=== PATIENT | male | born 1975 | race Caucasian/White ===

== ENCOUNTER 2018-08-23 10:32 | Emergency (ER) | payer OTHER ==
[2018-08-23 10:54] VITALS: RESP 18; TEMP 99.9
[2018-08-23 11:47] LABS: Appearance,Urine Cloudy (Clear); Bacteria,Urine Moderate /hpf; Bilirubin,Urine Negative (Negative); Blood,Urine Moderate (Negative); Color,Urine Yellow; Glucose,Urine (UA) Negative (Negative); Ketones,Urine Negative (Negative); Leukocyte Esterase,Urine Large (Negative); Mucus,Urine Rare /hpf; Nitrite,Urine Positive (Negative); PH, Urine 5.5 (5.0-8.0); Protein,Urine Trace (Negative); RBC,Urine 91 /hpf (0-5); Specific Gravity,Urine 1.018 (1.001-1.035); Squamous Epithelial Cell,Urine 1 /hpf (0-4); Urobilinogen,Urine <2.0 mg/dL (<2.0)
[2018-08-23] MEDS ORDERED: ACETAMINOPHEN TAB 500 MG TAB PO STA (11:56)
[2018-08-23] MEDS ORDERED: CIPROFLOXACIN HCL 500 MG TAB PO STA (13:16)
--- NOTE | 2018-08-23 13:16 | ED ---
Male Urogenital HPI - General Chief complaint: Back Pain/Injury Stated complaint: Poss kidney stone Time Seen by Provider: 08/23/18 11:26 Source: patient, RN notes reviewed, old records reviewed Mode of arrival: ambulatory Limitations: no limitations - History of Present Illness Initial comments: This is a 43-year-old male to the ER for evaluation. This patient presents today for evaluation regards to back pain. Patient has back pain and dysuria blood in his urine and burning with urination. Patient states he has no medical history, no prior history of STD STI. No fevers. Patient does admit to little pain in his lower back area. No history of kidney stones. Patient was recently a long fishing trip, he has the symptoms 3 days with no improvement. Patient's taken Motrin with no help for pain. No other complaints MD Complaint: dysuria -: days(s) (5) Location: penis Radiation: none Severity: mild Severity scale (1-10): 3 Quality: aching Consistency: constant Improves with: none Worsens with: urination Reports: blood in urine, dysuria - Related Data Home Medications Medication Instructions Recorded Confirmed Fenofibrate Nanocrystallized 48 mg PO DAILY 08/23/18 08/23/18 [Tricor] Ibuprofen [Motrin Ib] 800 mg PO Q6H PRN 08/23/18 08/23/18 Allergies Allergy/AdvReac Type Severity Reaction Status Date / Time No Known Allergies Allergy Verified 08/23/18 12:52 Review of Systems ROS Statement: Those systems with pertinent positive or pertinent negative responses have been documented in the HPI. ROS Other: All systems not noted in ROS Statement are negative. Past Medical History Past Medical History: No Reported History History of Any Multi-Drug Resistant Organisms: None Reported Past Surgical History: No Surgical Hx Reported Past Psychological History: No Psychological Hx Reported Smoking Status: Current every day smoker Past Alcohol Use History: Rare Past Drug Use History: Marijuana General Exam Limitations: no limitations General appearance: alert, in no apparent distress Head exam: Present: atraumatic, normocephalic, normal inspection Eye exam: Present: normal appearance, PERRL, EOMI. Absent: scleral icterus, conjunctival injection, periorbital swelling ENT exam: Present: normal exam, mucous membranes moist Neck exam: Present: normal inspection. Absent: tenderness, meningismus, lymphadenopathy Respiratory exam: Present: normal lung sounds bilaterally. Absent: respiratory distress, wheezes, rales, rhonchi, stridor Cardiovascular Exam: Present: regular rate, normal rhythm, normal heart sounds. Absent: systolic murmur, diastolic murmur, rubs, gallop, clicks GI/Abdominal exam: Present: soft, normal bowel sounds. Absent: distended, tenderness, guarding, rebound, rigid Extremities exam: Present: normal inspection, full ROM, normal capillary refill. Absent: tenderness, pedal edema, joint swelling, calf tenderness Back exam: Present: normal inspection Neurological exam: Present: alert, oriented X3, CN II-XII intact Psychiatric exam: Present: normal affect, normal mood Skin exam: Present: warm, dry, intact, normal color. Absent: rash Course Vital Signs 08/23/18 10:52 Temperature 99.9 F H Pulse Rate 85 Respiratory 18 Rate Blood Pressure 119/67 O2 Sat by Pulse 98 Oximetry - Reevaluation(s) Reevaluation #1: 08/23/18 13:15 Medical record is reviewed Reevaluation #2: 08/23/18 13:15 Patient is in no acute distress Medical Decision Making - Medical Decision Making 43-year-old male to ER for evaluation. Patient has positive UTI we'll culture for STI, computed tomography scan is negative for kidney stone. Patient can be discharged home - Lab Data Lab Results 08/23/18 Range/Units 11:34 Urine Color Yellow Urine Appearance Cloudy (Clear) Urine pH 5.5 (5.0-8.0) Ur Specific [place] 1.018 (1.001-1.035) Urine Protein Trace H (Negative) Urine Glucose (UA) Negative (Negative) Urine Ketones Negative (Negative) Urine Blood Moderate H (Negative) Urine Nitrite Positive (Negative) Urine Bilirubin Negative (Negative) Urine Urobilinogen <2.0 (<2.0) mg/dL Ur Leukocyte Esterase Large H (Negative) Urine RBC 91 H (0-5) /hpf Urine WBC 121 H (0-5) /hpf Urine WBC Clumps Occasional H (None) /hpf Ur Squamous Epith Cells 1 (0-4) /hpf Urine Bacteria Moderate H (None) /hpf Urine Mucus Rare H (None) /hpf - Radiology Data Radiology results: report reviewed (CT abdomen and pelvis negative for acute disease), image reviewed Disposition Clinical Impression: UTI (urinary tract infection), Urethritis Disposition: HOME SELF-CARE Condition: Good Instructions (If sedation given, give patient instructions): Nonspecific Urethritis in Men (ED) Is patient prescribed a controlled substance at d/c from ED?: No Referrals: Zack Gamboa DO [Primary Care Provider] - 1-2 days
--- NOTE | 2018-08-23 13:33 | CT ---
EXAMINATION TYPE: CT abdomen pelvis wo con DATE OF EXAM: 08/23/2018 COMPARISON: None INDICATION: Rt flank pain, difficult urination DLP: 566 mGycm, Automated exposure control for dose reduction was used. CONTRAST: 0 mL of Isovue 300. Study performed without Oral Contrast TECHNIQUE: Axial images were obtained from above the diaphragm to the pubic rami in the axial plane a t 5 mm thick sections. Reconstructed images are reviewed on the computer in the coronal plane. FINDINGS: Limited CT sections are obtained the lung bases. The lung bases are clear. CT ABDOMEN: Liver: Normal Spleen: Normal Pancreas: Normal Adrenal glands: The adrenal glands are normal. Gallbladder: Normal Kidneys: No masses are evident. Minimal fullness is in the right kidney. No hydronephrosis or hydrour eter is evident. There is some very minimal right periureteral inflammatory change. Recent passage of a renal stone is not excluded. There are no renal stones identified on this examination. No cysts ar e present. No suspicious calcifications within the kidneys or ureters are evident. No urinary bladde r calcifications are evident. Aorta: Vascular calcification is within the aorta. Inferior vena cava: Normal. CT PELVIS: Loops of bowel within the abdomen and pelvis are normal. Studies performed without oral contrast limiting bowel evaluation. Some fecal debris is within the colon. Appendix: Normal as visualized. Urinary bladder: Incompletely distended. No suspicious renal stones are identified. Genitourinary structures: Prostate is unremarkable. Osseous structures: No suspicious lytic or sclerotic lesions. Some facet hypertrophy is present. IMPRESSIONS: 1. There appears to be some minimal fullness of the right renal collecting system. Finding is nonspe cific. No obstructing renal or ureteral stones evident. Recent passage could have this appearance. 2. No acute nonobstructing renal stones are evident within either kidney.
[2018-08-23 14:22] VITALS: BP 102/58; PULSE 76
[2018-08-25 10:36] LABS: C. trachomatis,PCR Negative (Neg,Equiv); Chlamydia trachomatis Source Urine
[2018-08-25 15:48] LABS: N. gonorrhoeae,PCR Negative (Neg,Equiv); Neisseria Source Urine
== END 2018-08-23 14:22 | disposition home or self-care (01) ==
LOC: EC 10:32
DX: N34.2 Other urethritis (principal); N39.0 Urinary tract infection, site not specified; M54.5 Low back pain; F17.200 Nicotine dependence, unspecified, uncomplicated; Z79.899 Other long term (current) drug therapy
CPT/HCPCS: 74176; 81001; 87077; 87086; 87186; 87491; 87591; 99284

== ENCOUNTER 2021-04-04 14:44 | Observation (INO) | payer OTHER ==
--- NOTE | 2021-04-04 15:45 | ED ---
General Adult HPI - General Chief complaint: Chest Pain Stated complaint: Chest Pain,Blurred Vision Time Seen by Provider: 04/04/21 14:53 Source: patient Mode of arrival: ambulatory Limitations: no limitations - History of Present Illness Initial comments: Dictation was produced using [employer] dictation software. please excuse any grammatical, word or spelling errors. Chief Complaint: 45-year-old male with past medical history of hype rtriglyceridemia, tobacco abuse, family history of cardiac disease presents to the emergency department for chest pain. History of Present Illness: 45-year-old maladies been having some substernal and epigastric pain for the last 4-5 days. He called his primary care doctor about it. Primary care doctor ordered a chest x-ray for concerns of pneumonia. Patient has been having some wheezing shortness of breath. X-rays unremarkable. Patient was treated for pneumonia. He went to the urgent care had a covid test that was negative. For the last 3-4 days he's been having substernal chest pain. He did have some associated nausea and diaphoresis during 1 episode. He does have some mild active chest pain currently. Patient has risk factors. His family history of coronary artery disease. Patient does report having had some symptoms radiate to his right upper extremity. Patient states he has had some episodes where he'll become tachycardic into the 150s while at rest. He knows this because he put on a pulse oximeter at home that showed that he was hypoxic and tachycardic. The ROS documented in this emergency department record has been reviewed and confirmed by me. Those systems with pertinent positive or negative responses have been documented in the HPI. All other systems are other negative and/or noncontributory. PHYSICAL EXAM: General Impression: Alert and oriented x3, not in acute distress HEENT: Normocephalic atraumatic, extra-ocular movements intact, pupils equal and reactive to light bilaterally, mucous membranes moist. Cardiovascular: Heart regular rate and rhythm Chest: Able to complete full sentences, no retractions, no tachypnea Abdomen: abdomen soft, non-tender, non-distended, no organomegaly Musculoskeletal: Pulses present and equal in all extremities, no peripheral edema Motor: no focal deficits noted Neurological: CN II-XII grossly intact, no focal motor or sensory deficits noted Skin: Intact with no visualized rashes Psych: Normal affect and mood ED course: 45-year-old male presents emergency department for chest pain symptoms concerning for acute coronary syndrome. Signs upon arrival are within acceptable limits. EKG on arrival does not suggest any signs of ischemia or infarction. Laboratory evaluation obtained. Mild leukocytosis of 0.5. Rest is likely from recent steroids. Coag panel is negative. D-dimer is negative. Metabolic panel is unremarkable. Troponin is negative. Chest x-ray shows no acute processes. Patient reevaluated bedside at 5:00 PM found to be in stable medical condition. He does not have any active chest symptoms at this time. Patient given aspirin. He'll be admitted under the care of Dr. fenton on behalf of [facility] hospitalist group. Cardiology consulted. EKG interpretation: Ventricular rate 91, normal sinus rhythm, PA interval 140, QRS 106, QTC 440. No PA prolongation, no QTC prolongation, no ST or T-wave changes noted. No old EKG for comparison. Overall, this EKG is unremarkable - Related Data Home Medications Medication Instructions Recorded Confirmed Albuterol Inhaler [Ventolin Hfa 2 puff INHALATION RT-QID PRN 04/04/21 04/04/21 Inhaler] Levofloxacin [Levaquin] 750 mg PO DAILY 04/04/21 04/04/21 predniSONE [Deltasone] See Taper PO DIRECTED 04/04/21 04/04/21 Allergies Allergy/AdvReac Type Severity Reaction Status Date / Time No Known Allergies Allergy Verified 04/04/21 16:27 Review of Systems ROS Statement: Those systems with pertinent positive or pertinent negative responses have been documented in the HPI. ROS Other: All systems not noted in ROS Statement are negative. Past Medical History Past Medical History: No Reported History History of Any Multi-Drug Resistant Organisms: None Reported Past Surgical History: No Surgical Hx Reported Past Psychological History: No Psychological Hx Reported Smoking Status: Current every day smoker Past Alcohol Use History: Rare Past Drug Use History: Marijuana General Exam Limitations: no limitations Course Vital Signs 04/04/21 04/04/21 14:49 16:17 Temperature 98.2 F Pulse Rate 98 84 Respiratory 16 18 Rate Blood Pressure 149/83 128/89 O2 Sat by Pulse 96 98 Oximetry Medical Decision Making - Lab Data Result diagrams: 04/04/21 14:59 04/04/21 14:59 Lab Results 04/04/21 04/04/2121 Range/Units 14:59 14:59 14:59 WBC 12.5 H (3.8-10.6) k/uL RBC 5.64 (4.30-5.90) m/uL Hgb 18.2 H (13.0-17.5) gm/dL Hct 53.4 H (39.0-53.0) % MCV 94.7 (80.0-100.0) fL MCH 32.2 (25.0-35.0) pg MCHC 34.0 (31.0-37.0) g/dL RDW 12.0 (11.5-15.5) % Plt Count 248 (150-450) k/uL MPV 7.5 Neutrophils % 90 % Lymphocytes % 6 % Monocytes % 3 % Eosinophils % 0 % Basophils % 0 % Neutrophils # 11.3 H (1.3-7.7) k/uL Lymphocytes # 0.8 L (1.0-4.8) k/uL Monocytes # 0.3 (0-1.0) k/uL Eosinophils # 0.0 (0-0.7) k/uL Basophils # 0.0 (0-0.2) k/uL PT 10.4 (9.0-12.0) sec INR 1.0 (<1.2) APTT 27.6 (22.0-30.0) sec D-Dimer <0.17 (<0.60) mg/L FEU Sodium 136 L (137-145) mmol/L Potassium 4.6 (3.5-5.1) mmol/L Chloride 102 (98-107) mmol/L Carbon Dioxide 24 (22-30) mmol/L Anion Gap 10 mmol/L BUN 18 (9-20) mg/dL Creatinine 0.80 (0.66-1.25) mg/dL Est GFR (CKD-EPI)AfAm >90 (>60 ml/min/1.73 sqM) Est GFR (CKD-EPI)NonAf >90 (>60 ml/min/1.73 sqM) Glucose 120 H (74-99) mg/dL Calcium 9.7 (8.4-10.2) mg/dL Magnesium 2.3 (1.6-2.3) mg/dL Total Bilirubin 0.5 (0.2-1.3) mg/dL AST 32 (17-59) U/L ALT 30 (4-49) U/L Alkaline Phosphatase 91 (38-126) U/L Troponin I (0.000-0.034) ng/mL NT-Pro-B Natriuret Pep pg/mL Total Protein 7.0 (6.3-8.2) g/dL Albumin 4.2 (3.5-5.0) g/dL Lipase 79 (23-300) U/L 04/04/21 04/04/21 Range/Units 14:59 14:59 WBC (3.8-10.6) k/uL RBC (4.30-5.90) m/uL Hgb (13.0-17.5) gm/dL Hct (39.0-53.0) % MCV (80.0-100.0) fL MCH (25.0-35.0) pg MCHC (31.0-37.0) g/dL RDW (11.5-15.5) % Plt Count (150-450) k/uL MPV Neutrophils % % Lymphocytes % % Monocytes % % Eosinophils % % Basophils % % Neutrophils # (1.3-7.7) k/uL Lymphocytes # (1.0-4.8) k/uL Monocytes # (0-1.0) k/uL Eosinophils # (0-0.7) k/uL Basophils # (0-0.2) k/uL PT (9.0-12.0) sec INR (<1.2) APTT (22.0-30.0) sec D-Dimer (<0.60) mg/L FEU Sodium (137-145) mmol/L Potassium (3.5-5.1) mmol/L Chloride (98-107) mmol/L Carbon Dioxide (22-30) mmol/L Anion Gap mmol/L BUN (9-20) mg/dL Creatinine (0.66-1.25) mg/dL Est GFR (CKD-EPI)AfAm (>60 ml/min/1.73 sqM) Est GFR (CKD-EPI)NonAf (>60 ml/min/1.73 sqM) Glucose (74-99) mg/dL Calcium (8.4-10.2) mg/dL Magnesium (1.6-2.3) mg/dL Total Bilirubin (0.2-1.3) mg/dL AST (17-59) U/L ALT (4-49) U/L Alkaline Phosphatase (38-126) U/L Troponin I <0.012 (0.000-0.034) ng/mL NT-Pro-B Natriuret Pep 53 pg/mL Total Protein (6.3-8.2) g/dL Albumin (3.5-5.0) g/dL Lipase (23-300) U/L Disposition Clinical Impression: Chest pain Disposition: ADMITTED IP TO THIS HOSP Condition: Fair Referrals: Zack Gamboa DO [Primary Care Provider] - 1-2 days
[2021-04-04 15:57] LABS: Basophils % (A) 0 %; Eosinophils % (A) 0 %; HCT 53.4 % (39.0-53.0); HGB 18.2 gm/dL (13.0-17.5); Lymphocytes # (A) 0.8 k/uL (1.0-4.8); Lymphocytes % (A) 6 %; MCH 32.2 pg (25.0-35.0); MCV 94.7 fL (80.0-100.0); Mean Platelet Volume 7.5; Monocytes # (A) 0.3 k/uL (0-1.0); Monocytes % (A) 3 %; Neutrophils # (A) 11.3 k/uL (1.3-7.7); Neutrophils % (A) 90 %; Platelet Count 248 k/uL (150-450); RBC 5.64 m/uL (4.30-5.90); WBC 12.5 k/uL (3.8-10.6)
[2021-04-04 16:06] LABS: ALT 30 U/L (4-49); AST 32 U/L (17-59); African American GFR (CKD) >90 (>60 ml/min/1.73 sqM); Albumin 4.2 g/dL (3.5-5.0); Alkaline Phosphatase 91 U/L (38-126); Anion Gap 10 mmol/L; Blood Urea Nitrogen 18 mg/dL (9-20); Calcium 9.7 mg/dL (8.4-10.2); Carbon Dioxide 24 mmol/L (22-30); Chloride 102 mmol/L (98-107); Glucose 120 mg/dL (74-99); Lipase 79 U/L (23-300); Magnesium 2.3 mg/dL (1.6-2.3); Non-African American GFR(CKD) >90 (>60 ml/min/1.73 sqM); Potassium 4.6 mmol/L (3.5-5.1); Sodium 136 mmol/L (137-145); Total Bilirubin 0.5 mg/dL (0.2-1.3)
--- NOTE | 2021-04-04 16:10 | XR ---
EXAMINATION TYPE: XR chest 1V portable DATE OF EXAM: 04/04/2021 COMPARISON: NONE HISTORY: Chest pain, shortness of breath, and weakness. TECHNIQUE: Single AP portable frontal upright view of the chest is obtained. FINDINGS: There is no suspicious focal air space opacity, pleural effusion, or pneumothorax seen. T he cardiac silhouette size is within normal limits. Overlying EKG leads. The osseous structures are intact. IMPRESSION: No acute process.
[2021-04-04 16:13] LABS: Partial Thromboplastin Time 27.6 sec (22.0-30.0); Prothrombin Time 10.4 sec (9.0-12.0)
[2021-04-04] MEDS ORDERED: ASPIRIN 81 MG PO STA (16:54)
[2021-04-04] MEDS ORDERED: NITROGLYCERIN SL TABS 0.4 MG TAB SUBLINGUAL PRN (16:54)
[2021-04-05] MEDS ORDERED: ALBUTEROL NEBULIZED 7.5 MG, IPRATROPIUM NEBULIZED 0.5 MG, SODIUM CHLORIDE 0.9% NEBULIZ ... INHALATION ONE ×3 (08:06)
[2021-04-05] MEDS ORDERED: ASPIRIN 325 MG TAB PO SCH (09:00)
[2021-04-05] MEDS: FAMOTIDINE 20 MG/2 ML VIAL IV SCH ×2 (09:07→21:12)
[2021-04-05] MEDS: ASPIRIN 81 MG PO SCH (09:07)
[2021-04-05] MEDS: HEPARIN SODIUM,PORCINE/PF 5,000 UNIT/0.5 ML SYRINGE SQ SCH ×2 (09:07→21:13)
[2021-04-05] MEDS: PANTOPRAZOLE 40 MG TABLET PO SCH (09:16)
[2021-04-05 09:52] LABS: Basophils # (A) 0.05 X 10*3/uL (0.00-0.10); Basophils % (A) 0.3 %; Eosinophils # (A) 0.07 X 10*3/uL (0.04-0.35); Eosinophils % (A) 0.4 %; HCT 52.9 % (39.6-50.0); HGB 17.4 g/dL (13.0-17.0); Lymphocytes # (A) 2.33 X 10*3/uL (0.90-5.00); Lymphocytes % (A) 14.8 %; MCH 30.9 pg (27.0-32.0); MCHC 32.9 g/dL (32.0-37.0); Monocytes # (A) 0.91 X 10*3/uL (0.20-1.00); Monocytes % (A) 5.8 %; Neutrophils # (A) 12.29 X 10*3/uL (1.80-7.70); Neutrophils % (A) 78.3 %; Platelet Count 266 X 10*3/uL (140-440); RBC 5.63 X 10*6/uL (4.40-5.60); RDW 12.3 % (11.5-14.5); WBC 15.71 X 10*3/uL (4.50-10.00)
[2021-04-05] MEDS ORDERED: predniSONE 20 MG TAB PO SCH (11:30)
[2021-04-05] MEDS ORDERED: IPRATROPIUM-ALBUTEROL 3 ML NEB INHALATION STA (11:31)
--- NOTE | 2021-04-05 11:32 | P.CRDCN ---
History of Present Illness History of present illness: HISTORY OF PRESENTING ILLNESS This is a pleasant 45-year-old male past medical history significant for dyslipidemia and chronic pink edema dependent. 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 We have been asked to see in consultation for chest pain. He states for the previous one week he has been experiencing symptoms of burning in the midsternal region associated with shortness of breath. He saw his PCP who thought he possibly had pneumonia, however xray imaging was unremarkable. He was treated as such anyways. At times he has been nauseated and diaphoretic. Denies dizziness or palpitations. He states his chest burning is worse when he lays flat as well as his shortness of breath. When he is up moving his symptoms seem to improve. He cannot take a deep breath without coughing. DIAGNOSTICS EKG reveals SR with incomplete right bundle branch block, no acute ST or T-wave abnormalities. Telemetry tracings indicate SR. Chest xray negative for an acute cardiopulmonary process. Laboratory reviewed, WBC 12.5, hgb 18.2, plt 248, d-dimer negative, sodium 136, potassium 4.6, creatinine 0.8, magnesium 2.3, cardiac enzymes negative x3 and BNP 53. He takes no daily cardiac medications. REVIEW OF SYSTEMS At the time of my exam: CONSTITUTIONAL: Denies fever or chills. CARDIOVASCULAR: Denies chest pain, shortness of breath, orthopnea, PND or palpitations. RESPIRATORY: Denies cough. GASTROINTESTINAL: Denies abdominal pain, diarrhea, constipation, nausea or vomiting. MUSCULOSKELETAL: Denies myalgias. NEUROLOGIC: Denies numbness, tingling, headache or weakness. ENDOCRINE: Denies fatigue, weight change, polydipsia or polyurina. GENITOURINARY: Denies burning, hematuria or urgency with micturation. HEMATOLOGIC: Denies history of anemia or bleeding. PHYSICAL EXAMINATION Blood pressure 113/70 heart rate 54 afebrile and maintaining oxygen saturation on room air. CONSTITUTIONAL: No apparent distress. HEENT: Head is normocephalic. Pupils are equal, round. Sclerae anicteric. Mucous membranes of the mouth are moist. No JVD. No carotid bruit. CHEST EXAMINATION: Scattered rhonchi and expiratory wheeze. No chest wall tenderness is noted on palpation or with deep breathing. HEART EXAMINATION: Regular rate and rhythm. S1, S2 heard. No murmurs, gallops or rub. ABDOMEN: Soft, nontender. EXTREMITIES: 2+ peripheral pulses, no lower extremity edema and no calf tenderness. NEUROLOGIC EXAMINATION: Patient is awake, alert and oriented x3. ASSESSMENT Chest pain Shortness of breath Leukocytosis PLAN An acute coronary event has been ruled out. Obtain 2D echocardiogram and doppler study to assess cardiac structure and function. Initiate protonix and give a breathing treatment. Consider pulmonary evaluation. Further recommendations to follow as evaluation by Dr. Chairez. Thank you kindly for this consultation. Nurse Practitioner note has been reviewed, I agree with a documented findings and plan of care. Patient was seen and examined. Past Medical History Past Medical History: No Reported History History of Any Multi-Drug Resistant Organisms: None Reported Past Surgical History: No Surgical Hx Reported Past Anesthesia/Blood Transfusion Reactions: No Reported Reaction Past Psychological History: No Psychological Hx Reported Smoking Status: Current every day smoker Past Alcohol Use History: Rare Past Drug Use History: Marijuana Medications and Allergies Home Medications Medication Instructions Recorded Confirmed Type Albuterol Inhaler [Ventolin Hfa 2 puff INHALATION RT-QID PRN 04/04/21 04/04/21 History Inhaler] Levofloxacin [Levaquin] 750 mg PO DAILY 04/04/21 04/04/21 History predniSONE [Deltasone] See Taper PO DIRECTED 04/04/21 04/04/21 History Allergies Allergy/AdvReac Type Severity Reaction Status Date / Time No Known Allergies Allergy Verified 04/04/21 16:27 Physical Exam Vitals: Vital Signs Temp Pulse Pulse Resp BP BP Pulse Ox 04/05/21 07:00 97.9 F 54 L 18 113/70 97 04/05/21 02:00 97.6 F 58 L 18 115/63 95 04/04/21 20:00 98 F 76 18 122/71 95 04/04/21 19:15 98.2 F 90 18 118/75 98 04/04/21 19:02 88 04/04/21 17:05 79 18 133/81 99 04/04/21 16:17 84 18 128/89 98 04/04/21 14:49 98.2 F 98 16 149/83 96 Intake and Output 04/04/21 04/05/21 04/05/21 22:59 06:59 14:59 Other: # Voids 1 3 Weight 94.347 kg Results 04/05/21 04:34 04/04/21 14:59 Cardiac Enzymes 04/04/21 04/04/21 04/04/21 Range/Units 14:59 14:59 17:43 AST 32 (17-59) U/L Troponin I <0.012 <0.012 (0.000-0.034) ng/mL 04/04/21 Range/Units 20:26 AST (17-59) U/L Troponin I <0.012 (0.000-0.034) ng/mL Coagulation 04/04/21 Range/Units 14:59 PT 10.4 (9.0-12.0) sec APTT 27.6 (22.0-30.0) sec CBC 04/04/21 Range/Units 14:59 WBC 12.5 H (3.8-10.6) k/uL RBC 5.64 (4.30-5.90) m/uL Hgb 18.2 H (13.0-17.5) gm/dL Hct 53.4 H (39.0-53.0) % Plt Count 248 (150-450) k/uL Comprehensive Metabolic Panel 04/04/21 Range/Units 14:59 Sodium 136 L (137-145) mmol/L Potassium 4.6 (3.5-5.1) mmol/L Chloride 102 (98-107) mmol/L Carbon Dioxide 24 (22-30) mmol/L BUN 18 (9-20) mg/dL Creatinine 0.80 (0.66-1.25) mg/dL Glucose 120 H (74-99) mg/dL Calcium 9.7 (8.4-10.2) mg/dL AST 32 (17-59) U/L ALT 30 (4-49) U/L Alkaline Phosphatase 91 (38-126) U/L Total Protein 7.0 (6.3-8.2) g/dL Albumin 4.2 (3.5-5.0) g/dL Current Medications Generic Name Dose Route Start Last Admin Trade Name Freq PRN Reason Stop Dose Admin Aspirin 81 mg 04/05/21 09:00 04/05/21 09:07 Aspirin 81 Mg PO 81 mg DAILY DARON Administration Famotidine 20 mg 04/05/21 09:00 04/05/21 09:07 Famotidine 20 Mg/2 Ml Vial IV 20 mg Q12HR DARON Administration Heparin Sodium (Porcine) 5,000 unit 04/05/21 09:00 04/05/21 09:07 Heparin Sodium,Porcine/Pf 5,000 Unit/0.5 Ml Syringe SQ 5,000 unit Q12HR DARON Administration Nitroglycerin 0.4 mg 04/04/21 16:54 Nitroglycerin Sl Tabs 0.4 Mg Tab SUBLINGUAL Q5M PRN Chest Pain Pantoprazole Sodium 40 mg 04/05/21 08:15 04/05/21 09:16 Pantoprazole 40 Mg Tablet PO 40 mg [id number] DARON Administration Intake and Output 04/04/21 04/05/21 04/05/21 22:59 06:59 14:59 Other: # Voids 1 3 Weight 94.347 kg 04/04/21 14:59 04/04/21 14:59
[2021-04-05] MEDS ORDERED: IPRATROPIUM-ALBUTEROL 3 ML NEB INHALATION PRN (11:34)
[2021-04-05] MEDS ORDERED: methylPREDNISolone SOD SUCCI 125 MG/2 ML VIAL IV STA (11:35)
--- NOTE | 2021-04-05 11:36 | P.HPIM ---
History of Present Illness This is a pleasant 45 years old male with no significant past medical history. Patient presents because of chest pain. He is a patient of Dr. Zack Pierce who was recently prescribed him ready zone Taper and Levaquin 750 mg daily for suspected pneumonia as per patient. 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 He was taking his antibiotic and oral steroids for the last 4 days. This time she presents because of common cold-like symptoms associated with fullness in his belly with no abdominal pain or nausea vomiting, no sneezing or sore throat but he felt something sitting in his chest 8/10 in severity now down to 4-5/10 in severity, pain is central, nonradiating. He denies any urinary symptoms He smokes about 1 pack per day, patient is counseled to quit, he does not want nicotine patch. He drinks occasionally and uses marijuana daily. Vitals are stable, he is mildly bradycardic Labs showing mild leukocytosis of 12.5 but he might be on steroids. repeat WBC is 15.7. Hemoglobin is 18.2. INR is normal 1.0. D-dimer is negative less than 0.17. Sodium 136. BMP and liver enzymes are unremarkable. Coronal brow was not detected. Troponin are negative 3 less than 0.012. Chest x-ray: No acute process. EKG: Normal sinus rhythm at 91 with incomplete right bundle branch block and no significant ST-T changes. QTC 440 In the emergency room he received aspirin Review of Systems CONSTITUTIONAL: No fever, no malaise, no fatigue. HEENT: No recent visual problems or hearing problems. Denied any sore throat. CARDIOVASCULAR: No orthopnea, PND, no palpitations, no syncope. PULMONARY: No shortness of breath, no cough, no hemoptysis. GASTROINTESTINAL: No diarrhea, no nausea, no vomiting, no abdominal pain. Normoactive bowel sounds. NEUROLOGICAL: No headaches, no weakness, no numbness. HEMATOLOGICAL: Denies any bleeding or petechiae. GENITOURINARY: Denies any burning micturition, frequency, or urgency. MUSCULOSKELETAL/RHEUMATOLOGICAL: Denies any joint pain, swelling, or any muscle pain. ENDOCRINE: Denies any polyuria or polydipsia. Past Medical History Past Medical History: No Reported History History of Any Multi-Drug Resistant Organisms: None Reported Past Surgical History: No Surgical Hx Reported Past Anesthesia/Blood Transfusion Reactions: No Reported Reaction Past Psychological History: No Psychological Hx Reported Smoking Status: Current every day smoker Past Alcohol Use History: Rare Past Drug Use History: Marijuana Medications and Allergies Home Medications Medication Instructions Recorded Confirmed Type Albuterol Inhaler [Ventolin Hfa 2 puff INHALATION RT-QID PRN 04/04/21 04/04/21 History Inhaler] Levofloxacin [Levaquin] 750 mg PO DAILY 04/04/21 04/04/21 History predniSONE [Deltasone] See Taper PO DIRECTED 04/04/21 04/04/21 History Allergies Allergy/AdvReac Type Severity Reaction Status Date / Time No Known Allergies Allergy Verified 04/04/21 16:27 Physical Exam Vitals: Vital Signs Temp Pulse Pulse Resp BP BP Pulse Ox 04/05/21 07:00 97.9 F 54 L 18 113/70 97 04/05/21 02:00 97.6 F 58 L 18 115/63 95 04/04/21 20:00 98 F 76 18 122/71 95 04/04/21 19:15 98.2 F 90 18 118/75 98 04/04/21 19:02 88 04/04/21 17:05 79 18 133/81 99 04/04/21 16:17 84 18 128/89 98 04/04/21 14:49 98.2 F 98 16 149/83 96 Intake and Output 04/04/21 04/05/21 04/05/21 22:59 06:59 14:59 Other: # Voids 1 3 Weight 94.347 kg GENERAL: The patient is alert and oriented x3, not in any acute distress. Well developed, well nourished. HEENT: Pupils are round and equally reacting to light. EOMI. No scleral icterus. No conjunctival pallor. Normocephalic, atraumatic. No pharyngeal erythema. No thyromegaly. CARDIOVASCULAR: S1 and S2 present. No murmurs, rubs, or gallops. PULMONARY: Chest is clear to auscultation, Scatteredwheezing . no crackles. ABDOMEN: Soft, nontender, nondistended, normoactive bowel sounds. No palpable organomegaly. MUSCULOSKELETAL: No joint swelling or deformity. EXTREMITIES: No cyanosis, clubbing, or pedal edema. NEUROLOGICAL: Gross neurological examination did not reveal any focal deficits. SKIN: No rashes. No petechiae Results CBC & Chem 7: 04/05/21 04:34 04/04/21 14:59 Labs: Abnormal Lab Results - Last 24 Hours (Table) 04/04/21 04/04/21 Range/Units 14:59 14:59 WBC 12.5 H (3.8-10.6) k/uL Hgb 18.2 H (13.0-17.5) gm/dL Hct 53.4 H (39.0-53.0) % Neutrophils # 11.3 H (1.3-7.7) k/uL Lymphocytes # 0.8 L (1.0-4.8) k/uL Sodium 136 L (137-145) mmol/L Glucose 120 H (74-99) mg/dL Thrombosis Risk Factor Assmnt - Choose All That Apply Any of the Below Risk Factors Present?: Yes Each Factor Represents 1 point: Age 41-60 years Other Risk Factors: No Other congenital or acquired thrombophilia - If yes, enter type in comment: No Thrombosis Risk Factor Assessment Total Risk Factor Score: 1 Thrombosis Risk Factor Assessment Level: Low Risk Assessment and Plan Assessment: Chest pain, rule out cardiac causes. D-dimer negative less than 0.17 Incomplete right bundle branch block with mild bradycardia Mild leukocytosis, mostly secondary to steroid effect mild COPD exacerbation, on steroids Nicotine dependence Brief treatment with mild depression secondary to loss of life few months ago Plan: This is a pleasant 45 years old male who presents because of chest pain Continue with aspirin. Cardiology consult Continue with prednisone. Add Symbicort and breathing treatment Labs and medication were reviewed.. Continue same treatment. Continue with symptomatic treatment. Resume home medication. Monitor lytes and vitals. DVT and GI prophylaxis. Further recommendations depends on the clinical course of the patient DVT prophylaxis: Subcutaneous heparin GI Prophylaxis: Ppi Prognosis is guarded
--- NOTE | 2021-04-05 12:45 | ECHOF ---
Referral Reason:cp, sob MEASUREMENTS -------- HEIGHT: 182.9 cm WEIGHT: 94.3 kg BP: 113/70 RVIDd: 3.4 cm (< 3.3) IVSd: 1.4 cm (0.6 - 1.1) LVIDd: 5.0 cm (3.9 - 5.3) LVPWd: 1.3 cm (0.6 - 1.1) IVSs: 1.5 cm LVIDs: 3.2 cm LVPWs: 1.5 cm LAESV Index (A-L): 21.64 ml/m Ao Diam: 3.6 cm (2.0 - 3.7) AV Cusp: 2.2 cm (1.5 - 2.6) LA Diam: 3.3 cm (2.7 - 3.8) MV EXCURSION: 19.730 mm (> 18.000) MV EF SLOPE: 90 mm/s (70 - 150) EPSS: 0.6 cm MV E Donnell: 0.86 m/s MV DecT: 150 ms MV A Donnell: 0.69 m/s MV E/A Ratio: 1.24 RAP: 5.00 mmHg RVSP: 22.55 mmHg FINDINGS -------- Sinus rhythm. This was a technically adequate study. The left ventricular size is normal. There is mild concentric left ventricular hypertrophy. Overa ll left ventricular systolic function is normal with, an EF between 55 - 60 %. The diastolic fillin g pattern is normal for the age of the patient 9.98. The right ventricle is mildly enlarged. Normal LA size by volume 22+/-6 ml/m2. The right atrial size is normal. Interatrial and interventricular septum intact. There is no evidence of aortic regurgitation. There is no evidence of aortic stenosis. No mitral regurgitation. Mild tricuspid regurgitation present. There is no evidence of pulmonary hypertension. The right v entricular systolic pressure, as measured by Doppler, is 22.55mmHg. There is no pulmonic regurgitation present. The aortic root size is normal. Normal inferior vena cava with normal inspiratory collapse consistent with estimated right atrial pre ssure of 5 mmHg. There is no pericardial effusion. CONCLUSIONS -------- 1. The left ventricular size is normal. 2. There is mild concentric left ventricular hypertrophy. 3. Overall left ventricular systolic function is normal with, an EF between 55 - 60 %. 4. The diastolic filling pattern is normal for the age of the patient 9.98 5. The right ventricle is mildly enlarged. 6. Mild tricuspid regurgitation present. [employer] SERVICE [employer]EL [employer]NER: Deborah Valdivia RDCS
--- NOTE | 2021-04-05 14:02 | P.CNPUL ---
History of Present Illness Consult date: 04/05/21 Requesting physician: Rigoberto Severino Reason for consult: COPD Chief complaint: Chest tightness, cough, and wheezing History of present illness: This is a 45-year-old white male, smoker, primarily a patient of Dr. Pierce, patient was recently seen by his primary care physician with a few days' history of cough, chest tightness, wheezing and shortness of breath. His cough was described as productive with yellow phlegm, no fever no chills no hemoptysis, patient had lots of chest tightness, and felt like something was sitting on his chest. Patient was diagnosed as having pneumonia treated with antibiotics in the form of Levaquin, and he was also placed on a course of prednisone 60 mg for 3 days 40 mg for 2 days and 20 mg for 2 days. Patient did not notice any improvement, hence he was seen in the ER yesterday, chest x-ray showed no evidence of infiltrate. No evidence of any significant pulmonary abnormality. Patient was admitted and this consult was initiated. He was already seen by cardiology, and felt his symptoms were not cardiac in nature. The newspaper clipper recommended a pulmonary consultation. Patient denies any history of asthma as a child. He describes his symptoms only happening in the last 1 week. Describes symptoms of GERD, also describes symptoms of snoring consistent with mild obstructive sleep apnea syndrome. Patient is already on methylprednisolone, he is already on bronchodilators in the form of albuterol and Atrovent, and he is also on Symbicort. Not much of a change since he was admitted yesterday. Review of Systems CONSTITUTIONAL: Nice fevers chills or weight loss. HEENT: He should describes mostly symptoms of obstructive sleep apnea syndrome. CARDIOVASCULAR: As noted in HPI. PULMONARY: As noted in HPI. GASTROINTESTINAL: Symptoms of GERD, seems to be worse since he was admitted. NEUROLOGICAL: Negative. HEMATOLOGICAL: Negative. GENITOURINARY: Negative MUSCULOSKELETAL/RHEUMATOLOGICAL: Negative ENDOCRINE: Negative Past Medical History Past Medical History: No Reported History History of Any Multi-Drug Resistant Organisms: None Reported Past Surgical History: No Surgical Hx Reported Past Anesthesia/Blood Transfusion Reactions: No Reported Reaction Past Psychological History: No Psychological Hx Reported Smoking Status: Current every day smoker Past Alcohol Use History: Rare Past Drug Use History: Marijuana Medications and Allergies Home Medications Medication Instructions Recorded Confirmed Type Albuterol Inhaler [Ventolin Hfa 2 puff INHALATION RT-QID PRN 04/04/21 04/04/21 History Inhaler] Levofloxacin [Levaquin] 750 mg PO DAILY 04/04/21 04/04/21 History predniSONE [Deltasone] See Taper PO DIRECTED 04/04/21 04/04/21 History Allergies Allergy/AdvReac Type Severity Reaction Status Date / Time No Known Allergies Allergy Verified 04/04/21 16:27 Physical Exam Vitals: Vital Signs Temp Pulse Pulse Resp BP BP Pulse Ox 04/05/21 08:00 54 L 18 04/05/21 07:00 97.9 F 54 L 18 113/70 97 04/05/21 02:00 97.6 F 58 L 18 115/63 95 04/04/21 20:00 98 F 76 18 122/71 95 04/04/21 19:15 98.2 F 90 18 118/75 98 04/04/21 19:02 88 04/04/21 17:05 79 18 133/81 99 04/04/21 16:17 84 18 128/89 98 04/04/21 14:49 98.2 F 98 16 149/83 96 Intake and Output 04/04/21 04/05/21 04/05/21 22:59 06:59 14:59 Other: # Voids 1 3 Weight 94.347 kg Physical Exam: Revealed 45-year-old white male in no distress, on room air. Head: Atraumatic, normocephalic. HEENT:[Neck is supple.] [No neck masses.] [No thyromegaly.] [No JVD.] Chest: [Fused rhonchi and wheezes bilaterally. Cardiac Exam: [Normal S1 and S2, no S3 gallop, no murmur.] Abdomen: [Soft, nontender, no megaly, no rebound, no guarding, normal bowel sounds.] Extremities: [No clubbing, no edema, no cyanosis.] Neurological Exam: [No focal neurologic deficit.] Alert oriented 3 Psychiatric: Normal mood, affect and normal mental status examination. Skin: No rashes. Results - Laboratory Findings CBC and BMP: 04/05/21 04:34 04/04/21 14:59 PT/INR, D-dimer PT 10.4 sec (9.0-12.0) 04/04/21 14:59 INR 1.0 (<1.2) 04/04/21 14:59 D-Dimer <0.17 mg/L FEU (<0.60) 04/04/21 14:59 Abnormal lab findings: Abnormal Labs 04/04/21 04/04/21 04/05/21 14:59 14:59 04:34 WBC 12.5 H 15.71 H RBC 5.63 H Hgb 18.2 H 17.4 H Hct 53.4 H 52.9 H Immature Gran # 0.06 H Neutrophils # 11.3 H 12.29 H Lymphocytes # 0.8 L Sodium 136 L Glucose 120 H - Diagnostic Findings Chest x-ray: image reviewed (S x-ray is basically unremarkable.) Assessment and Plan Assessment: Impression: Acute exacerbation of COPD Acute purulent tracheobronchitis GERD with esophagitis, possibly contributing to symptoms of COPD exacerbation. Suspect mild obstructive sleep apnea syndrome. Tobacco dependence syndrome. Recommendation: Continue bronchodilators/DuoNeb Continue Solu-Medrol and discontinue prednisone Continue Symbicort And Protonix for his symptoms of GERD Consider outpatient follow-up for his pulmonary symptoms post discharge. We will continue to follow. Patient stated to me that he is going home tomorrow no matter what. Will follow while inpatient. Time with Patient: Greater than 30
[2021-04-05] MEDS: methylPREDNISolone SOD SUCCI 125 MG/2 ML VIAL IV SCH ×2 (15:05→21:13)
[2021-04-05] MEDS: SYMBICORT 160-4.5 MCG INHALER INHALATION SCH ×2 (15:15→15:36)
[2021-04-05 19:56] LABS: Chol/HDL Ratio 4.38 Ratio; LDL Cholesterol,Calculated 56.4 mg/dL (0.0-131.0); VLDL Calculation 68.6 mg/dL (5.00-40.00)
[2021-04-05] MEDS: DOXYCYCLINE 100 MG CAP PO SCH (21:12)
[2021-04-06] MEDS: methylPREDNISolone SOD SUCCI 125 MG/2 ML VIAL IV SCH ×2 (02:48→09:24)
[2021-04-06] MEDS ORDERED: DOBUTamine DRIP for NUC MED 500 MG in DEXTROSE/WATER 1 250ML.BAG IV PRN (05:00)
[2021-04-06 05:14] LABS: African American GFR (CKD) >90 (>60 ml/min/1.73 sqM); Anion Gap 10 mmol/L; Blood Urea Nitrogen 26 mg/dL (9-20); Calcium 9.7 mg/dL (8.4-10.2); Carbon Dioxide 24 mmol/L (22-30); Chloride 101 mmol/L (98-107); Glucose 172 mg/dL (74-99); Non-African American GFR(CKD) >90 (>60 ml/min/1.73 sqM); Potassium 4.7 mmol/L (3.5-5.1); Sodium 135 mmol/L (137-145)
[2021-04-06 07:40] VITALS: BP 127/62; PULSE 70; RESP 16; TEMP 97.8
[2021-04-06 09:16] LABS: Basophils # (A) 0.01 X 10*3/uL (0.00-0.10); Basophils % (A) 0.1 %; Eosinophils # (A) 0 X 10*3/uL (0.04-0.35); Eosinophils % (A) 0 %; HCT 51.8 % (39.6-50.0); Lymphocytes # (A) 0.93 X 10*3/uL (0.90-5.00); MCH 30.6 pg (27.0-32.0); MCHC 32.8 g/dL (32.0-37.0); MCV 93.2 fL (80.0-97.0); Mean Platelet Volume 9.7 fL (9.5-12.2); Monocytes # (A) 0.21 X 10*3/uL (0.20-1.00); Monocytes % (A) 1.1 %; Neutrophils # (A) 17.27 X 10*3/uL (1.80-7.70); Neutrophils % (A) 93.2 %; Platelet Count 262 X 10*3/uL (140-440); RBC 5.56 X 10*6/uL (4.40-5.60); RDW 11.9 % (11.5-14.5); WBC 18.53 X 10*3/uL (4.50-10.00)
[2021-04-06] MEDS: SYMBICORT 160-4.5 MCG INHALER INHALATION SCH (09:22)
[2021-04-06] MEDS: ASPIRIN 81 MG PO SCH (09:23)
[2021-04-06] MEDS: PANTOPRAZOLE 40 MG TABLET PO SCH (09:24)
[2021-04-06] MEDS: HEPARIN SODIUM,PORCINE/PF 5,000 UNIT/0.5 ML SYRINGE SQ SCH (09:25)
[2021-04-06] MEDS: DOXYCYCLINE 100 MG CAP PO SCH (09:26)
--- NOTE | 2021-04-06 11:03 | P.PN ---
Subjective HISTORY OF PRESENTING ILLNESS This is a pleasant 45-year-old male past medical history significant for dyslipidemia and chronic pink edema dependent. He denies prior history of coronary artery disease and does not follow in the office with a ent surgeon. We have been asked to see in consultation for chest pain. He states for the previous one week he has been experiencing symptoms of burning in the midsternal region associated with shortness of breath. He saw his PCP who thought he possibly had pneumonia, however xray imaging was unremarkable. He was treated as such anyways. At times he has been nauseated and diaphoretic. Denies dizziness or palpitations. He states his chest burning is worse when he lays flat as well as his shortness of breath. When he is up moving his symptoms seem to improve. He cannot take a deep breath without coughing. 04/05/2021 Pt seen and examined in no acute distress. Overall he states his breathing is the same. He denies any further symptoms of chest pain. He is quite aggressive and argumentative regarding his care. Blood pressure 127/62 heart rate 70 afebrile and maintaining oxygen saturation on room air. Laboratory data reviewed, WBC 18.5, hemoglobin 17, platelets 262, sodium 135, potassium 4.7, creatinine 0.95, LDL 56, HDL 37 and total cholesterol 162. Echocardiogram obtained reveals preserved LV systolic function with ejection fraction 55-60% and normal diastolic filling pattern. Mildly enlarged right ventricle and mild tricuspid regurgitation. He has been seen in evaluation by the pulmonary care team and is being treated for suspected exacerbation of COPD. PHYSICAL EXAMINATION CONSTITUTIONAL: No apparent distress. HEENT: Head is normocephalic. Pupils are equal, round. Sclerae anicteric. Mucous membranes of the mouth are moist. No JVD. No carotid bruit. CHEST EXAMINATION: Scattered rhonchi and expiratory wheeze. No chest wall tenderness is noted on palpation or with deep breathing. HEART EXAMINATION: Regular rate and rhythm. S1, S2 heard. No murmurs, gallops or rub. EXTREMITIES: 2+ peripheral pulses, no lower extremity edema and no calf tenderness. ASSESSMENT Chest pain Shortness of breath Leukocytosis PLAN Proceed with stress test as previously ordered. If normal, he can be discharged from a cardiac perspective. Nurse Practitioner note has been reviewed, I agree with a documented findings and plan of care. Patient was seen and examined. Objective - Vital Signs Vital signs: Vital Signs Temp 97.8 F 04/06/21 07:00 Pulse 70 04/06/21 07:00 Resp 16 04/06/21 08:00 BP 127/62 04/06/21 07:00 Pulse Ox 95 04/06/21 07:00 Intake & Output 04/05/21 04/06/21 04/06/21 18:59 06:59 18:59 Intake Total 477 Balance 477 Intake: Oral 477 Other: # Voids 3 3 - Labs CBC & Chem 7: 04/06/21 04:33 04/06/21 04:33 Labs: Abnormal Lab Results - Last 24 Hours (Table) 04/05/21 04/06/21 04/06/21 Range/Units 04:34 04:33 04:33 WBC 18.53 H (4.50-10.00) X 10*3/uL Hct 51.8 H (39.6-50.0) % Immature Gran # 0.11 H (0.00-0.04) X 10*3/uL Neutrophils # 17.27 H (1.80-7.70) X 10*3/uL Eosinophils # 0 L (0.04-0.35) X 10*3/uL Sodium 135 L (137-145) mmol/L BUN 26 H (9-20) mg/dL Glucose 172 H (74-99) mg/dL Triglycerides 343.00 H (0.00-149.00) mg/dL VLDL Cholesterol, Calc 68.60 H (5.00-40.00) mg/dL HDL Cholesterol 37.00 L (40.00-60.00) mg/dL
--- NOTE | 2021-04-06 11:33 | P.STRESS ---
- Stress Test Note Stress Test Results/Findings: Exam Performed: stress echo exercise Exam Date: 04/06/21 Reason for Exam: CP Height: 6 ft Weight: 94.35 kg Protocol: Aki Stage: IV Duration of Exercise: 9 min Resting Heart Rate: 99 Resting Blood Pressure: 131/60 Maximum Achieved Heart Rate: 178 Maximum Achieved Blood Pressure: 186/44 85% PMHR: 150 100% PMHR: 177 METS: 10.5 Technologist Comment: Stress Test Results/Findings: This is a 45-year-old gentleman was admitted to the hospital with burning chest pain associated with shortness of breath. Stress data: Baseline blood pressure is 131/60 with pulse rate of 99. KG at baseline showed sinus rhythm with normal MO interval and QRS duration with incomplete right bundle. Patient walked on the Aki protocol for 9 minutes achieving a maximal heart rate of 178 with a blood pressure 186/44. EKGs taken during and after exercise did not reveal any changes of ischemia. Echo data:. Baseline echo images showed normal wall motion and thickening. Exercise echo images showed augmentation of wall motion and thickening in all segments. Final impression: #1. Negative stress test #2. Negative stress echo.
--- NOTE | 2021-04-06 12:08 | P.PN ---
Subjective Progress Note Date: 04/06/21 Principal diagnosis: Acute exacerbation of COPD, acute purulent tracheobronchitis This is a 45-year-old white male, smoker, primarily a patient of Dr. Pierce, patient was recently seen by his primary care physician with a few days' history of cough, chest tightness, wheezing and shortness of breath. His cough was described as productive with yellow phlegm, no fever no chills no hemoptysis, patient had lots of chest tightness, and felt like something was sitting on his chest. Patient was diagnosed as having pneumonia treated with antibiotics in the form of Levaquin, and he was also placed on a course of prednisone 60 mg for 3 days 40 mg for 2 days and 20 mg for 2 days. Patient did not notice any improvement, hence he was seen in the ER yesterday, chest x-ray showed no evidence of infiltrate. No evidence of any significant pulmonary abnormality. Patient was admitted and this consult was initiated. He was already seen by cardiology, and felt his symptoms were not cardiac in nature. The clinical rn liaison recommended a pulmonary consultation. Patient denies any history of asthma as a child. He describes his symptoms only happening in the last 1 week. Describes symptoms of GERD, also describes symptoms of snoring consistent with mild obstructive sleep apnea syndrome. Patient is already on methylprednisolone, he is already on bronchodilators in the form of albuterol and Atrovent, and he is also on Symbicort. Not much of a change since he was admitted yesterday. On 04/06/2021 patient seen in follow-up on the medical surgical floor. Breathing Easiere, in no acute distress, room air pulse ox is 95%, he is afebrile, breathing comfortably, doing much better, he states he had a negative stress test today, he is being discharged home today. Vital signs have been stable. Pulse ox is 95% on room air, no fever or chills. Patient remains on nebulized bronchodilators, IV steroids in the form of Solu-Medrol 60 mg every 6 hours, Symbicort, and doxycycline. Denies any chest pain no hemoptysis. Objective - Vital Signs Vital signs: Vital Signs Temp 97.8 F 04/06/21 07:00 Pulse 70 04/06/21 07:00 Resp 16 04/06/21 08:00 BP 127/62 04/06/21 07:00 Pulse Ox 95 04/06/21 07:00 Intake & Output 04/05/21 04/06/21 04/06/21 18:59 06:59 18:59 Intake Total 477 Balance 477 Weight 94.35 kg Intake: Oral 477 Other: # Voids 3 3 - Exam GENERAL EXAM: Alert, very pleasant 45-year-old white male with room air pulse ox of 95% comfortable in no apparent distress. HEAD: Normocephalic/atraumatic. EYES: Normal reaction of pupils, equal size. Conjunctiva pink, sclera white. NOSE: Clear with pink turbinates. THROAT: No erythema or exudates. NECK: No masses, no JVD, no thyroid enlargement, no adenopathy. CHEST: No chest wall deformity. Symmetrical expansion. LUNGS: Equal air entry with a few scattered wheezes and rhonchi CVS: Regular rate and rhythm, normal S1 and S2, no gallops, no murmurs, no rubs ABDOMEN: Soft, nontender. No hepatosplenomegaly, normal bowel sounds, no guarding or rigidity. EXTREMITIES: No clubbing, no edema, no cyanosis, 2+ pulses and upper and lower extremities. MUSCULOSKELETAL: Muscle strength and tone normal. SPINE: No scoliosis or deformity SKIN: No rashes CENTRAL NERVOUS SYSTEM: Alert and oriented -3. No focal deficits, tone is normal in all 4 extremities. PSYCHIATRIC: Alert and oriented -3. Appropriate affect. Intact judgment and insight. - Labs CBC & Chem 7: 04/06/21 04:33 04/06/21 04:33 Labs: Abnormal Lab Results - Last 24 Hours (Table) 04/05/21 04/06/21 04/06/21 Range/Units 04:34 04:33 04:33 WBC 18.53 H (4.50-10.00) X 10*3/uL Hct 51.8 H (39.6-50.0) % Immature Gran # 0.11 H (0.00-0.04) X 10*3/uL Neutrophils # 17.27 H (1.80-7.70) X 10*3/uL Eosinophils # 0 L (0.04-0.35) X 10*3/uL Sodium 135 L (137-145) mmol/L BUN 26 H (9-20) mg/dL Glucose 172 H (74-99) mg/dL Triglycerides 343.00 H (0.00-149.00) mg/dL VLDL Cholesterol, Calc 68.60 H (5.00-40.00) mg/dL HDL Cholesterol 37.00 L (40.00-60.00) mg/dL Assessment and Plan Plan: Assessment: #1. Acute exacerbation of COPD and purulent tracheobronchitis #2. GERD with esophagitis, possibly contributing to his symptoms of COPD exacerbation #3. Suspect mild obstructive sleep apnea syndrome #4. Tobacco dependence syndrome Plan: Patient has improved He had a negative stress test according to him Vital signs have been stable No fever or chills Stable for discharge home from pulmonary perspective He can complete 21 day course of prednisone taper, starting at 30 mg for 5 days, 20 mg for 5 days, 10 mg for 5 days, and 5 mg for 6 days He can complete a ten-day course of doxycycline We'll prescribe Symbicort inhaler and albuterol inhaler He can follow up with his primary care physician I performed a history & physical examination of the patient and discussed their management with my nurse practitioner, Gilda Siu. I reviewed the nurse practitioner's note and agree with the documented findings and plan of care. Lung sounds are positive for diffuse wheezes throughout the lung cerrato. The findings and the impression was discussed with the patient. I attest to the documentation by the nurse practitioner. Time with Patient: Less than 30
--- NOTE | 2021-04-06 20:48 | P.DS ---
Providers Date of admission: 04/04/21 16:54 Attending physician: Rigoberto Severino MD Consults: 04/04/21 16:54 Consult Physician Urgent Consulting Provider: Hipolito Simpson Consult Reason/Comments: chest pain Do you want consulting provider notified?: Yes 04/05/21 11:35 Consult Physician Routine Consulting Provider: Matt Baig Consult Reason/Comments: bilateral wheezes, SOB Do you want consulting provider notified?: Yes Primary care physician: Zack Gamboa Hospital Course: Diagnoses: Chest pain, with negative stress test and cardiac causes ruled out. D-dimer negative less than 0.17 . 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 Patient presents because of chest pain. He is a patient of Dr. Zack Pierce who was recently prescribed him prednisone Taper and Levaquin 750 mg daily for suspected pneumonia as per patient. Patient presents with chest pain and found to have significant wheezing. Cardiology and pulmonary team evaluated the patient. He had negative stress test and press tool maker cleared him for discharge. He was treated also with the steroids, doxycycline and Symbicort and breathing treatment. His dyspnea and wheezing are significantly improved, there were only minimal and scattered on today's exam. No further chest pain or dyspnea. Patient was eager to go home today no matter what. Patient denies any other symptoms. No chest pain. No nausea vomiting. No change in urine or bowel habits. No abdominal pain. No fever. Patient was cleared for discharge by press tool maker and preparer making department Problems and management plan were discussed with the patient and he verbalized understanding and acceptance Patient was found stable and can be discharged home however he needs follow-up as an outpatient. Patient was instructed to follow up with PCP Dr. Zack Pierce within one week and patient agrees with the appointments made for him on 04/09 Patient was instructed to follow up with preparer making department Dr. Coon on 04/24 and he agrees and press tool maker Dr. Chairez in 2-3 weeks and he agrees to call and make appointment Physical exam Gen: patient is a AAOx3, no distress CVS: S1-S2, RRR, no murmur Lungs: B/L CTA, no wheezing Abdomen: soft, no distention, no tenderness, positive bowel sounds Extremity: no leg edema or induration Time spent more than 35 minutes Patient Condition at Discharge: Fair Plan - Discharge Summary Discharge Rx Participant: Yes New Discharge Prescriptions: New Budesonide-Formot 160-4.5 Mcg [Symbicort 160-4.5 Mcg Inhaler] 2 puff INHALATION BID 30 Days #1 each RX: Albuterol Inhaler [Ventolin Hfa Inhaler] 1 puff INHALATION RT-QID 30 Days #1 dispenser Omeprazole Magnesium [PriLOSEC] 20 mg PO DAILY #30 tab RX: predniSONE 10 mg PO DIRECTED 21 Days #33 tab RX: Doxycycline [Vibramycin] 100 mg PO BID 10 Days #2 cap Continue RX: Albuterol Inhaler [Ventolin Hfa Inhaler] 2 puff INHALATION RT-QID PRN PRN Reason: Shortness Of Breath Discontinued Levofloxacin [Levaquin] 750 mg PO DAILY predniSONE [Deltasone] See Taper PO DIRECTED Discharge Medication List RX: Albuterol Inhaler [Ventolin Hfa Inhaler] 2 puff INHALATION RT-QID PRN 04/04/21 [History] Budesonide-Formot 160-4.5 Mcg [Symbicort 160-4.5 Mcg Inhaler] 2 puff INHALATION BID 30 Days #1 each 04/06/21 [Rx] Omeprazole Magnesium [PriLOSEC] 20 mg PO DAILY #30 tab 04/06/21 [Rx] RX: Albuterol Inhaler [Ventolin Hfa Inhaler] 1 puff INHALATION RT-QID 30 Days #1 dispenser 04/06/21 [Rx] RX: Doxycycline [Vibramycin] 100 mg PO BID 10 Days #2 cap 04/06/21 [Rx] RX: predniSONE 10 mg PO DIRECTED 21 Days #33 tab 04/06/21 [Rx] Follow up Appointment(s)/Referral(s): Thanh Alba MD [STAFF PHYSICIAN] - 04/24/21 3:15 pm (with Yohana Johnson ) Zack Gamboa DO [Primary Care Provider] - 04/09/21 11:00 am Yrn Chairez MD [STAFF PHYSICIAN] - 3 Weeks (Office will call [facility] appointment time) Patient Instructions/Handouts: How to Stop Smoking (DC), Heart Healthy Diet (DC), Gastroesophageal Reflux Disease (DC) Activity/Diet/Wound Care/Special Instructions: Heart healthy diet Activity is restricted till you see your doctor Discharge Disposition: HOME SELF-CARE
--- NOTE | 2021-04-09 09:04 | EST ---
Stress Test Results/Findings: Exam Performed: stress echo exercise Exam Date: 04/06/21 Reason for Exam: CP Height: 6 ft Weight: 94.35 kg Protocol: Aki Stage: IV Duration of Exercise: 9 min Resting Heart Rate: 99 Resting Blood Pressure: 131/60 Maximum Achieved Heart Rate: 178 Maximum Achieved Blood Pressure: 186/44 85% PMHR: 150 100% PMHR: 177 METS: 10.5 Technologist Comment: Stress Test Results/Findings: This is a 45-year-old gentleman was admitted to the hospital with burning chest pain associated with shortness of breath. Stress data: Baseline blood pressure is 131/60 with pulse rate of 99. KG at baseline showed sinus rhythm with normal HI interval and QRS duration with incomplete right bundle. Patient walked on the Aki protocol for 9 minutes achieving a maximal heart rate of 178 with a blood pressure 186/44. EKGs taken during and after exercise did not reveal any changes of ischemia. Echo data:. Baseline echo images showed normal wall motion and thickening. Exercise echo images showed augmentation of wall motion and thickening in all segments. Final impression: #1. Negative stress test #2. Negative stress echo. LAURA
== END 2021-04-06 13:10 | disposition home or self-care (01) ==
LOC: EC 14:44 → 6NMEDSUR 16:54
PROVIDERS: ADMIT Internal Medicine; ATTEND Internal Medicine
DX: R07.89 Other chest pain (principal); R07.2 Precordial pain; J44.0 Chronic obstructive pulmonary disease with (acute) lower respiratory infection; J44.1 Chronic obstructive pulmonary disease with (acute) exacerbation; D72.829 Elevated white blood cell count, unspecified; T38.0X5A Adverse effect of glucocorticoids and synthetic analogues, initial encounter; F17.210 Nicotine dependence, cigarettes, uncomplicated; F32.9 Major depressive disorder, single episode, unspecified; Z63.4 Disappearance and death of family member; K21.00 Gastro-esophageal reflux disease with esophagitis, without bleeding; E78.5 Hyperlipidemia, unspecified; H53.8 Other visual disturbances; R11.0 Nausea; R61 Generalized hyperhidrosis; R00.1 Bradycardia, unspecified; I45.10 Unspecified right bundle-branch block; R06.83 Snoring; E78.1 Pure hyperglyceridemia; R09.02 Hypoxemia; R00.0 Tachycardia, unspecified; Z20.822 Contact with and (suspected) exposure to COVID-19; Z79.899 Other long term (current) drug therapy; Z87.01 Personal history of pneumonia (recurrent); Z71.6 Tobacco abuse counseling; Z53.29 Procedure and treatment not carried out because of patient's decision for other reasons; Z82.49 Family history of ischemic heart disease and other diseases of the circulatory system
CPT/HCPCS: 96376 ×2; 96372; 96375; 96374; 99285; 36415; 94640 ×2; 93005; 93306; 93351; 85379; 83880; 80061; 80053; 80048; 84443; 83690; 83735; 84484; 85025 ×3; 85610; 85730; 87635; 71045; G0378 ×3; J2930 ×2; J7512; J1644

== ENCOUNTER 2022-01-14 16:44 | Emergency (ER) | payer OTHER ==
[2022-01-14 16:50] VITALS: RESP 20
--- NOTE | 2022-01-14 17:58 | ED ---
General Adult HPI - General Source: patient Mode of arrival: ambulatory Limitations: no limitations <Tiffany Hugo - Last Filed: 01/14/22 19:03> <Matt Riggs - Last Filed: 01/14/22 20:44> - General Chief complaint: Upper Respiratory Infection Stated complaint: Chest Pain Time Seen by Provider: 01/14/22 17:49 - History of Present Illness Initial comments: Patient is a 46-year-old male presents the emergency room with complaints of cough and congestion ongoing for 5 days and seeming to get worse. He presented to urgent care earlier today who encouraged him to come to the emergency room as he did not wish to start on any inhalers or steroids without definitive diagnosis of acute illness due to previous history of diffuse candidiasis requiring significant antifungal use. He reports that he has been utilizing DayQuil and NyQuil without any symptom improvement. He does he also reports having a flushing feeling where he feels as though his whole body is hot however he denies any fevers. He also reports waking up with being covered in sweat but denies any overt chills. He complains of nausea without vomiting. He denies any diarrhea, abdominal pain, headaches or dizziness. He reports taking a home COVID test that was negative. He states that he had a chest x-ray along with an EKG completed at the urgent care. He was advisable these tests were normal. he denies any significant past medical history except for as already stated in HPI. He is a smoker but states he has not had any cigarettes in the last 3 days. (Tiffany Hugo) - Related Data Previous Rx's Medication Instructions Recorded Levofloxacin [Levaquin] 500 mg PO DAILY 1 Days #7 tab 01/14/22 Allergies Allergy/AdvReac Type Severity Reaction Status Date / Time No Known Allergies Allergy Verified 01/14/22 18:56 Review of Systems ROS Other: All systems not noted in ROS Statement are negative. <Tiffany Hugo - Last Filed: 01/14/22 19:03> ROS Other: All systems not noted in ROS Statement are negative. <Matt Riggs - Last Filed: 01/14/22 20:44> ROS Statement: Those systems with pertinent positive or pertinent negative responses have been documented in the HPI. Past Medical History Past Medical History: No Reported History History of Any Multi-Drug Resistant Organisms: None Reported Past Surgical History: No Surgical Hx Reported Past Anesthesia/Blood Transfusion Reactions: No Reported Reaction Past Psychological History: No Psychological Hx Reported Smoking Status: Current every day smoker Past Alcohol Use History: Rare Past Drug Use History: Marijuana <Tiffany Hugo - Last Filed: 01/14/22 19:03> General Exam Limitations: no limitations General appearance: alert, in no apparent distress Head exam: Present: atraumatic, normocephalic, normal inspection Eye exam: Present: normal appearance, PERRL, EOMI. Absent: scleral icterus, conjunctival injection, periorbital swelling ENT exam: Present: mucous membranes moist Expanded Ear exam: Present: normal external inspection Mouth exam: Present: normal external inspection Throat exam: tonsillar erythema. negative: tonsillar exudate Neck exam: Present: normal inspection. Absent: tenderness, meningismus, lymphadenopathy Respiratory exam: Present: wheezes. Absent: respiratory distress, rales, rhonchi, stridor, accessory muscle use Cardiovascular Exam: Present: regular rate, normal rhythm, normal heart sounds. Absent: systolic murmur, diastolic murmur, rubs, gallop, clicks GI/Abdominal exam: Present: soft, normal bowel sounds. Absent: distended, tenderness, guarding, rebound, rigid Extremities exam: Present: normal inspection, full ROM, normal capillary refill. Absent: tenderness, pedal edema, joint swelling, calf tenderness Back exam: Present: normal inspection Neurological exam: Present: alert, oriented X3, CN II-XII intact Psychiatric exam: Present: normal affect, normal mood Skin exam: Present: warm, dry, intact, normal color. Absent: rash <Tiffany Hugo - Last Filed: 01/14/22 19:03> Course <Matt Riggs - Last Filed: 01/14/22 20:44> Vital Signs 01/14/22 16:46 Temperature 98.3 F Pulse Rate 92 Respiratory 20 Rate Blood Pressure 116/78 O2 Sat by Pulse 97 Oximetry - Reevaluation(s) Reevaluation #1: 01/14/22 20:42 I did reevaluate the patient I did discuss the findings with him x-rays apparently were negative lab work is unremarkable patient's clinical findings are consistent with bronchitis he is a smoker. He states he does have apprehension about taking steroids due to prior oral thrush and ariel infection. He states he does have Combivent inhaler at home. He will be given a course of antibiotics. He is follow-up with his doctor return when necessary (Matt Riggs) Reevaluation #2: 01/14/22 20:43 Of note the patient was offered treatment in the emergency department she declined. (Matt Riggs) Medical Decision Making <Tiffany Hugo - Last Filed: 01/14/22 19:03> - Lab Data Result diagrams: 01/14/22 19:05 01/14/22 19:05 <Matt Riggs - Last Filed: 01/14/22 20:44> - Medical Decision Making Will defer repeating chest x-ray and EKG. Will check COVID, influenza and strep swab. Will check CBC and CMP. Agree with likely previous findings of bronchitis needing inhalers and steroids. Will await viral swabs along with CBC for infectious status. Hemodynamically stable. No indication for IV steroids or antibiotics at this time. Case discussed and transferred to Dr. Riggs for continuation of care. (Tiffany Hugo) - Lab Data Lab Results 01/14/22 01/14/22 01/14/22 Range/Units 18:48 19:05 19:05 WBC 10.0 (3.8-10.6) k/uL RBC 5.79 (4.30-5.90) m/uL Hgb 17.8 H (13.0-17.5) gm/dL Hct 53.2 H (39.0-53.0) % MCV 91.9 (80.0-100.0) fL MCH 30.8 (25.0-35.0) pg MCHC 33.5 (31.0-37.0) g/dL RDW 12.2 (11.5-15.5) % Plt Count 181 (150-450) k/uL MPV 7.2 Neutrophils % 76 % Lymphocytes % 13 % Monocytes % 7 % Eosinophils % 2 % Basophils % 1 % Neutrophils # 7.6 (1.3-7.7) k/uL Lymphocytes # 1.3 (1.0-4.8) k/uL Monocytes # 0.7 (0-1.0) k/uL Eosinophils # 0.2 (0-0.7) k/uL Basophils # 0.1 (0-0.2) k/uL Sodium 135 L (137-145) mmol/L Potassium 3.9 (3.5-5.1) mmol/L Chloride 101 (98-107) mmol/L Carbon Dioxide 24 (22-30) mmol/L Anion Gap 10 mmol/L BUN 14 (9-20) mg/dL Creatinine 0.92 (0.66-1.25) mg/dL Est GFR (CKD-EPI)AfAm >90 (>60 ml/min/1.73 sqM) Est GFR (CKD-EPI)NonAf >90 (>60 ml/min/1.73 sqM) Glucose 116 H (74-99) mg/dL Calcium 8.7 (8.4-10.2) mg/dL Influenza Type A (PCR) Not Detected (Not Detectd) Influenza Type B (PCR) Not Detected (Not Detectd) RSV (PCR) Not Detected (Not Detectd) SARS-CoV-2 (PCR) Not Detected (Not Detectd) Disposition <Tiffany Hugo - Last Filed: 01/14/22 19:03> Is patient prescribed a controlled substance at d/c from ED?: No <Matt Riggs - Last Filed: 01/14/22 20:44> Clinical Impression: Bronchitis, Bronchospasm with bronchitis, acute Disposition: HOME SELF-CARE Condition: Good Instructions (If sedation given, give patient instructions): Bronchospasm (ED), Acute Bronchitis (ED) Prescriptions: Levofloxacin [Levaquin] 500 mg PO DAILY 1 Days #7 tab Referrals: None,Stated [Primary Care Provider] - 1-2 days
[2022-01-14 19:11] LABS: Basophils # (A) 0.1 k/uL (0-0.2); Basophils % (A) 1 %; Eosinophils # (A) 0.2 k/uL (0-0.7); Eosinophils % (A) 2 %; HCT 53.2 % (39.0-53.0); HGB 17.8 gm/dL (13.0-17.5); Lymphocytes # (A) 1.3 k/uL (1.0-4.8); Lymphocytes % (A) 13 %; MCH 30.8 pg (25.0-35.0); MCHC 33.5 g/dL (31.0-37.0); MCV 91.9 fL (80.0-100.0); Mean Platelet Volume 7.2; Monocytes # (A) 0.7 k/uL (0-1.0); Monocytes % (A) 7 %; Neutrophils # (A) 7.6 k/uL (1.3-7.7); Neutrophils % (A) 76 %; Platelet Count 181 k/uL (150-450); RBC 5.79 m/uL (4.30-5.90); RDW 12.2 % (11.5-15.5)
[2022-01-14 19:28] LABS: African American GFR (CKD) >90 (>60 ml/min/1.73 sqM); Anion Gap 10 mmol/L; Blood Urea Nitrogen 14 mg/dL (9-20); Calcium 8.7 mg/dL (8.4-10.2); Carbon Dioxide 24 mmol/L (22-30); Chloride 101 mmol/L (98-107); Glucose 116 mg/dL (74-99); Non-African American GFR(CKD) >90 (>60 ml/min/1.73 sqM); Potassium 3.9 mmol/L (3.5-5.1); Sodium 135 mmol/L (137-145)
[2022-01-14] MEDS: LEVOFLOXACIN 500 MG TAB PO STA ×2 (21:17→21:27)
[2022-01-14 21:31] VITALS: BP 145/90; PULSE 90; TEMP 98.2
== END 2022-01-14 21:25 | disposition home or self-care (01) ==
LOC: EC 16:44
DX: J98.01 Acute bronchospasm (principal); F17.200 Nicotine dependence, unspecified, uncomplicated; F12.90 Cannabis use, unspecified, uncomplicated; Z20.822 Contact with and (suspected) exposure to COVID-19
CPT/HCPCS: 36415; 80048; 85025; 87636; 99283